=== PATIENT | male | born 1945 | race Caucasian/White ===

== ENCOUNTER → 2017-02-10 13:08 | Outpatient (CLI) | payer MEDICARE, OTHER ==
[2011-08-11 12:02] VITALS: BMI 37.0
== END | disposition home or self-care (01) ==
LOC: D.CT 13:08
DX: I25.10 Atherosclerotic heart disease of native coronary artery without angina pectoris (principal)

== ENCOUNTER → 2017-11-30 10:39 | Outpatient (CLI) | payer MEDICARE, OTHER ==
[2011-08-11 12:02] VITALS: BMI 37.0
== END | disposition home or self-care (01) ==
LOC: D.RAD 10:39
DX: S20.20XD Contusion of thorax, unspecified, subsequent encounter (principal); S10.93XD Contusion of unspecified part of neck, subsequent encounter; S20.221D Contusion of right back wall of thorax, subsequent encounter; X58.XXXA Exposure to other specified factors, initial encounter

== ENCOUNTER → 2018-01-01 17:09 | Outpatient (CLI) | payer MEDICARE, OTHER ==
[2011-08-11 12:02] VITALS: BMI 37.0
== END | disposition home or self-care (01) ==
LOC: D.MRI 17:09
DX: R55 Syncope and collapse (principal)